=== PATIENT | male | born 1950 | race Hispanic/Latino ===

== ENCOUNTER → 2020-04-13 | Outpatient (REF) | payer MEDICARE, OTHER | LOC: M SMT 17:15 | PROVIDERS: ATTEND Urology | DX: C67.4 Malignant neoplasm of posterior wall of bladder (principal) ==

== ENCOUNTER → 2020-05-13 | Outpatient (CLI) | payer MEDICARE, OTHER ==
[~2020-05-13] MED LIST: ATOR1TAB21 PO; ECOT81TA5 PO; FLOM0.4C39 PO; LISI20TA33 PO; PROS5TAB PO
== END ==
LOC: M LABSMTC 10:35
PROVIDERS: ATTEND Anesthesiology
DX: Z01.812 Encounter for preprocedural laboratory examination (principal); Z20.822 Contact with and (suspected) exposure to COVID-19

== ENCOUNTER 2020-05-18 06:05 | Day surgery (SDC) | payer OTHER ==
[~2020-05-18] VITALS: Ht 180.3 cm; Wt 82.0 kg
[~2020-05-18 06:05] MED LIST changes: +LIDOCAINE 1% MDV 20ML VIAL SQ PRN; +LR 1,000 ML IV ONE
[2020-05-18] MEDS ORDERED: ceFAZolin SOD 2 GM in IV 1 EA IV ONE (06:30)
[2020-05-18] MEDS ORDERED: CONRAY-60 60% 50ML VIAL (Q9961) As Ordered ONE (07:39)
[2020-05-18] MEDS ORDERED: MIDAZOLAM INJ 2MG/2ML VIAL (J2250 PER 1MG) As Ordered ONE (07:47)
[2020-05-18] MEDS ORDERED: SUGAMMADEX SODIUM 500 MG/5 ML VIAL (BRIDION) As Ordered ONE (07:47)
[2020-05-18] MEDS ORDERED: dexameTHASONE 4 MG/ML 1ML VIAL (J1100 PER 1MG) As Ordered ONE (07:47)
[2020-05-18] MEDS ORDERED: ONDANSETRON 4MG/2ML VIAL As Ordered ONE (07:47)
[2020-05-18] MEDS ORDERED: fentaNYL 100 MCG/2 ML INJECTION (J3010) As Ordered ONE ×2 (07:47→08:26)
[2020-05-18] MEDS ORDERED: ROCURONIUM BROMIDE 50 MG/5 ML VIAL As Ordered ONE (07:47)
[2020-05-18] MEDS ORDERED: LIDOCAINE 2% 100MG/5ML SDV (FOR ANES.) As Ordered ONE (07:47)
[2020-05-18] MEDS ORDERED: propofoL 200 MG/20 ML VIAL As Ordered ONE (07:47)
[2020-05-18] MEDS ORDERED: ACETAMINOPHEN 1000MG 100ML IV BTL (OFIRMEV) (J0131 PER 10MG) As Ordered ONE (08:04)
[2020-05-18] MEDS ORDERED: ePHEDrine SULFATE 25 MG/5 ML(5MG/ML) SYRINGE As Ordered ONE (08:08)
--- NOTE | 2020-05-18 09:12 | REP ---
INDICATION: STENT PLACEMENT. COMPARISON: None. TECHNIQUE: Intraoperative fluoroscopic imaging. FINDINGS: Findings demonstrate satisfactory right ureteral stent placement. Total fluoroscopic time 21 seconds. IMPRESSION: Status post right ureteral stent placement. <Electronically signed by Jagdish Guzman > 05/18/20 0970
[2020-05-18] MEDS ORDERED: PERCOCET 5MG/325MG TAB PO PRN (09:45)
[2020-05-18] MEDS ORDERED: fentaNYL 100 MCG/2 ML INJECTION (J3010) IV PRN (09:45)
[2020-05-18] MEDS ORDERED: oxyCODONE 5MG TAB PO PRN (09:45)
[2020-05-18] MEDS ORDERED: LR 1,000 ML IV SCH (09:45)
[2020-05-18] MEDS ORDERED: ONDANSETRON 4MG/2ML VIAL IV PRN (09:45)
--- NOTE | 2020-05-18 09:55 | RO ---
OPERATIVE NOTE DATE OF OPERATION: 05/18/2020 PREOPERATIVE DIAGNOSIS: Bladder tumors. POSTOPERATIVE DIAGNOSIS: Bladder tumors. PROCEDURE: Cystoscopy, transurethral resection of bladder tumors (between 2 and 5 cm), right ureteroscopy, bilateral retrograde pyelogram with intraop interpretation of images, right ureteral stent placement, urethral dilation. SURGEON: Ever Grullon MD HEARING AID MECHANIC: None. ANESTHESIA: General. OPERATIVE INDICATIONS: This is a 69-year-old male who was found to have papillary bladder tumors growing lateral to the right ureteral office on office cystoscopy. He is brought to the operating room today for treatment. DESCRIPTION OF PROCEDURE: The patient was brought to the operating room and general anesthesia induced. Prophylactic antibiotics were infused. He was placed in the dorsal lithotomy position and prepped and draped in usual sterile fashion. At this point I attempted to insert a resectoscope into the urethral meatus but it would not go as the meatus was a little too narrow. I therefore dilated the meatus to 30-Palestinian using curved metal sounds. After that I advanced the resectoscope in all the way to the level of the bladder. Of note, the patient had several papillary tumors growing just lateral to the right ureteral orifice. I began resecting the tumors using a bipolar loop. I made sure to resect to the muscle layer. Once satisfied all the tumors were removed they were evacuated from the bladder. Hemostasis was obtained using coagulation current. At this point I observed the right ureteral orifice to ensure I had not caused any damage to it during resection. While observing it appeared that the patient had tumor protruding out of the right ureteral orifice. At this point I decided to investigate that. Starting first on the left side I inserted a 5-Palestinian open ureteral catheter into the left ureteral orifice. Retrograde pyelogram was performed. It was negative for hydronephrosis. It was negative for filling defects. At this point I went back to the right side and advanced a guidewire up the right collecting system. I then advanced ureteral access sheath up the right collecting system. I went up the right collecting system with flexible ureteroscope and examined the kidney thoroughly. There were no tumors seen inside any of the calyces or the renal pelvis. Retrograde pyelogram was performed and was negative hydronephrosis. It was negative for filling defects. I then withdrew the ureteroscope along with the access sheath and observed the entire ureter. No tumors were seen anywhere inside the ureter. This indicated that what was seen protruding from the right ureteral orifice was likely small tumor debris that had floated into the ureteral orifice during resection. Once again, there were no tumors seen inside the right ureter. At this point I utilized the guidewire to advance a 6-Palestinian x 22-32 cm JJ ureteral stent into the right collecting system. The wire was removed and there were adequate curls of the stent in right renal pelvis and in the bladder. At this point I observed the area of resection again and there was no bleeding. I then withdrew the resectoscope and advanced 18-Palestinian Coude catheter into the bladder. The balloon was filled with 10 mL of sterile water and catheter was connected to gravity drainage. This marked the conclusion of the procedure. The patient was taken out of the dorsal lithotomy position, awakened from anesthesia and transported to the recovery room in stable condition. ESTIMATED BLOOD LOSS: 5 mL. COMPLICATIONS: None. SPECIMEN: Bladder tumor. PLAN: The patient will follow up in urology clinic in approximately one week for catheter removal and to discuss pathology results. We will take his stent out within the next few weeks. MOE
[2020-05-18 10:55] VITALS: BP 128/84
== END 2020-05-18 10:55 | disposition home or self-care (01) ==
LOC: M SDC 06:05 → EEVIPCON 07:30 → M SDC 10:55
PROVIDERS: ATTEND Urology
DX: C67.8 Malignant neoplasm of overlapping sites of bladder (principal); I10 Essential (primary) hypertension; R21 Rash and other nonspecific skin eruption; Z87.891 Personal history of nicotine dependence; N40.0 Benign prostatic hyperplasia without lower urinary tract symptoms; G47.30 Sleep apnea, unspecified; Z79.899 Other long term (current) drug therapy
CPT/HCPCS: 52235; 52332; 74420; 88305; C1769; C1894; C2617; J0131; J0690; J1100; J2250; J2405; J3010; Q9961

== ENCOUNTER 2020-05-27 11:30 | Inpatient (IN) | payer OTHER ==
[~2020-05-27] VITALS: Ht 180.3 cm; Wt 82.6 kg
[~2020-05-27 11:30] MED LIST changes: -LIDOCAINE 1% MDV 20ML VIAL SQ PRN; -LR 1,000 ML IV ONE
[2020-05-27 16:22] VITALS: BP 98/57
--- NOTE | 2020-05-27 17:06 | HPEPDOC ---
General Date of Admission 05/27/20 Date of Service: May 27, 2020 Chief Complaint The patient is a 69-year-old male admitted with a reason for visit of Sepsis Uti. Source: Patient Exam Limitations: No limitations Timing/Duration: Day(s) Severity: Moderate History of Present Illness Patient is 69 years old male with past history of hyperlipidemia, aortic valve replacement, hypertension, bladder cancer status post TUR was transferred from [facility] with fever and chills. Patient stated that 3 days ago he had bladder tumor resection, which was done by Dr. Grullon. On the next day, patient developed generalized weakness with frequency in urination. He stated that he became unsteady in his walking Patient stated that frequency of urination was associated with suprapubic pain. Yesterday, patient developed fever and rigors, he noticed his urine became dark. He was able to urinate multiple times with small portion. Today patient came to [facility] where he was found to have low blood pressure, white blood count of 24.4 with band 18 , hemoglobin 4.6, creatinine 3.8. CT abdomen and pelvis was done, no report is available. EKG showed sinus tachycardia, with left bundle branch block. Patient denied any chest pain, palpitations. Also patient denied nausea, vomiting or diarrhea Home Medications Scheduled Ampicillin Trihydrate (Ampicillin Trihydrate) 500 Mg Capsule, 500 MG PO QID Aspirin (Ecotrin) 81 Mg Tablet.dr, 81 MG PO DAILY, (Reported) Atorvastatin Calcium (Atorvastatin Calcium) 20 Mg Tablet, 20 MG PO QHS, (Reported) Finasteride (Proscar) 5 Mg Tablet, 5 MG PO DAILY, (Reported) Lisinopril (Lisinopril) 20 Mg Tablet, 20 MG PO DAILY, (Reported) Tamsulosin HCl (Flomax) 0.4 Mg Capsule, 0.4 MG PO DAILY, (Reported) Allergies Coded Allergies: No Known Allergies (Unverified , 05/18/20) Past Medical History Medical History hyperlipidemia, aortic valve replacement, hypertension, bladder cancer status post TUR Surgical History Aortic valve replacement, bladder tumor resection Family History mother from breast cancer Social History * Smoker: former Smoker Alcohol: Denies Drugs: denies A-FIB/CHADSVASC A-FIB History Current/History of A-Fib/PAF?: No Current PO Anticoag Therapy: No Review of Systems Constitutional: Reports: Chills, Fever Eyes: Denies: Pain, Vision change ENT: Denies: Head Aches Skin: Denies: Rash, Lesions Pulmonary: Denies: Dyspnea Cardiovascular: Denies: Chest Pain Gastrointestinal: Denies: Nausea, Vomiting Genitourinary: Reports: Dysuria, Frequency Hematologic: Denies: Bruising, Bleeding Excessively Endocrine: Denies: Polydipsia Musculoskeletal: Denies: Neck Pain, Back Pain Neurological: Denies: Weakness Psych: Reports: Mood Normal Physical Examination General Exam: Positive: Alert, Cooperative Eye Exam: Positive: PERRLA ENT Exam: Positive: Atraumatic Neck Exam: Positive: Supple; Negative: JVD Chest Exam: Positive: Clear to auscultation Heart Exam: Positive: Tachycardic Telemetry: Positive: Sinus Abdomen Exam: Positive: Normal bowel sounds, Tenderness (mild suprapubic) Extremity Exam: Negative: Clubbing, Cyanosis Skin Exam: Positive: Nl turgor and temperature Neuro Exam: Positive: Strength at 5/5 X4 ext Psych Exam: Positive: Mental status NL Vital Signs [id number] Assessment/Plan Patient is 69 years old male with past history of hyperlipidemia, aortic valve replacement, hypertension, bladder cancer status post TUR was transferred from [facility] with fever and chills. Patient stated that 3 days ago he had bladder tumor resection, which was done by Dr. Grullon. On the next day, patient developed generalized weakness with frequency in urination. He stated that he became unsteady in his walking Patient stated that frequency of urination was associated with suprapubic pain. Yesterday, patient developed fever and rigors, he noticed his urine became dark. He was able to urinate multiple times with small portion. Today patient came to [facility] where he was found to have low blood pressure, white blood count of 24.4 with band 18 , hemoglobin 4.6, creatinine 3.8. CT abdomen and pelvis was done, no report is available. EKG showed sinus tachycardia, with left bundle branch block. Patient denied any chest pain, palpitations. Also patient denied nausea, vomiting or diarrhea Problems (1) Sepsis Status: Acute Problem Text: Secondary to surgical intervention, status post TURB due to tumor Patient developed leukocytosis, fever and tachycardia associated with low blood pressure of 90/[address] Grullon, he recommended to continue antibiotics Blood culture, urine culture Continue Holliday catheter Ceftriaxone IV IV fluid (2) Hyperlipidemia Status: Chronic Problem Text: Continue statin (3) Hypertension Status: Chronic Problem Text: Hold antihypertensive medication for now due to hypotension secondary to sepsis (4) Abnormal EKG Problem Text: Patient has sinus tachycardia with left bundle branch block. No previous EKG to compare. Patient has multiple risk factors: Age, hyperlipidemia, hypertension, smoking history Patient denied any chest pain or palpitations I will check troponin Telemetry (5) VENUS (acute kidney injury) Status: Acute Problem Text: Postrenal secondary to urinary obstruction due to recent TURB Creatinine significantly elevated to 3.[address], no hydronephrosis Continue to monitor IV fluid Plan / VTE VTE Prophylaxis Ordered?: Yes TONIA TRINIDAD DO May 27, 2020 17:06
[2020-05-27] MEDS: NS 1,000 ML IV SCH (17:40)
[2020-05-27] MEDS ORDERED: NS 1,000 ML IV ONE (17:45)
[2020-05-27 18:50] LABS: HEMATOCRIT 34.3 % (42.0-52.0); HEMOGLOBIN 11.4 g/dl (13.5-17.5); MEAN CORPUSCULAR HEMOGLOBIN 29.8 pg (27.0-33.0); MEAN CORPUSCULAR HGB CONC 33.2 g/dl (32.0-36.5); MEAN CORPUSCULAR VOLUME 89.8 fl (80.0-96.0); PLATELET COUNT, AUTOMATED 139 10^3/uL (150-450); RED BLOOD COUNT 3.82 10^6/uL (4.30-6.10); WHITE BLOOD COUNT 17.7 10^3/uL (4.0-10.0)
[2020-05-27 18:58] LABS: CREATININE FOR GFR 3.67 MG/DL (0.70-1.30); GLOMERULAR FILTRATION RATE 17.5 (>42); POTASSIUM SERUM 3.7 MEQ/L (3.5-5.1); TROPONIN I 0.22 NG/ML (< 0.10)
[2020-05-27 19:36] LABS: LYMPHOCYTES 1 % (16-44); MONOCYTES 1 % (0-5); NEUTROPHILS 73 % (28-66)
[2020-05-27 19:37] LABS: ANISOCYTOSIS 1+; OVALOCYTES 1+; PLATELET ESTIMATE NORMAL (NORMAL); POLYCHROMASIA 1+
[2020-05-27 21:00] VITALS: BP 105/68
[2020-05-27] MEDS ORDERED: SODIUM CHLORIDE 0.9% 1000ML IV ONE (21:25)
[2020-05-27] MEDS: ACETAMINOPHEN TAB 650MG DOSE (2X325MG) PO PRN (21:29)
[2020-05-27 22:00] VITALS: BP 120/71
[2020-05-28] MEDS: ACETAMINOPHEN TAB 650MG DOSE (2X325MG) PO PRN ×2 (05:16→14:14)
[2020-05-28 06:00] VITALS: BP 127/77
--- NOTE | 2020-05-28 06:08 | ECGEPIP ---
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
[2020-05-28 07:46] LABS: HEMATOCRIT 32.8 % (42.0-52.0); HEMOGLOBIN 10.8 g/dl (13.5-17.5); MEAN CORPUSCULAR HEMOGLOBIN 29.8 pg (27.0-33.0); MEAN CORPUSCULAR HGB CONC 32.9 g/dl (32.0-36.5); MEAN CORPUSCULAR VOLUME 90.4 fl (80.0-96.0); PLATELET COUNT, AUTOMATED 128 10^3/uL (150-450); RED BLOOD COUNT 3.63 10^6/uL (4.30-6.10); WHITE BLOOD COUNT 13.9 10^3/uL (4.0-10.0)
[2020-05-28 08:08] LABS: ALBUMIN 2.2 GM/DL (3.2-5.2); BILIRUBIN,TOTAL 0.2 MG/DL (0.2-1.0); CREATININE FOR GFR 3.21 MG/DL (0.70-1.30); GLOMERULAR FILTRATION RATE 20.5 (>42); MAGNESIUM LEVEL 2.1 MG/DL (1.8-2.4); POTASSIUM SERUM 3.7 MEQ/L (3.5-5.1); TOTAL PROTEIN 4.8 GM/DL (6.4-8.2)
[2020-05-28] MEDS: ENOXAPARIN 40MG/0.4ML SYRINGE (J1650 PER 10MG) SC SCH (08:17)
[2020-05-28] MEDS: TAMSULOSIN 0.4 MG CAP PO SCH (08:17)
[2020-05-28] MEDS: ASPIRIN 81MG ENTERIC TABLET PO SCH (08:17)
[2020-05-28] MEDS: NS 1,000 ML IV SCH ×2 (08:17→14:00)
[2020-05-28] MEDS: FINASTERIDE 5 MG TAB PO SCH (08:17)
[2020-05-28 08:27] VITALS: BP 102/68
[2020-05-28] MEDS ORDERED: NS 1,000 ML IV ONE ×2 (08:30→12:05)
[2020-05-28] MEDS ORDERED: cefTRIAXone SOD 1 GM in D5W MINI-BAG PLUS 50 ML IV SCH (10:00)
--- NOTE | 2020-05-28 10:08 | ECGEPIP ---
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
--- NOTE | 2020-05-28 11:08 | IPNPDOC ---
Text Note Date of Service The patient was seen on 05/28/20. NOTE Subjective: Patient developed chills and fever of 104 Fahrenheit overnight. In the morning he stated that he feels better, no chills, afebrile. Patient denied any chest pain or palpitations. Also patient complains of multiple episodes of diarrhea overnight. Objective: GENERAL APPEARANCE: NAD HEENT: no scleral icterus, no JVD, EOMI CARDIOVASCULAR: S1S2 LUNGS: Diminished lung sounds bilaterally ABDOMEN: soft & not tender w palpitation, no flank tenderness, mild suprapubic t enderness MUSCULOSKELETAL: no cyanosis, no swelling INTEGUMENT: no generalized pallor NEUROLOGICAL: cranial nerve function from 2-12 intact intact, follows commands, speech not dysarthric Assessment/Plan Patient is 69 years old male with past history of hyperlipidemia, aortic valve replacement, hypertension, bladder cancer status post TUR was transferred from [facility] with fever and chills. Patient stated that 3 days ago he had bladder tumor resection, which was done by Dr. Grullon. On the next day, patient developed generalized weakness with frequency in urination. He stated that he became unsteady in his walking Patient stated that frequency of urination was associated with suprapubic pain. Yesterday, patient developed fever and rigors, he noticed his urine became dark. He was able to urinate multiple times with small portion. Today patient came to [facility] where he was found to have low blood pressure, white blood count of 24.4 with band 18 , hemoglobin 4.6, creatinine 3.8. CT abdomen and pelvis was done, no report is available. EKG showed sinus tachycardia, with left bundle branch block. Patient denied any chest pain, palpitations. Also patient denied nausea, vomiting or diarrhea Problems (1) Sepsis Secondary to surgical intervention, status post TURB due to tumor Patient developed leukocytosis, fever and tachycardia associated with low blood pressure of 90/60 on admission I talked to Dr. Grullon, he recommended to continue antibiotics Blood culture, urine culture pending Procalcitonin 63.98 Continue Holliday catheter Ceftriaxone IV IV fluid Our radiology team reviewed CT abdomen and pelvis from [facility]: No renal or ureteral calculi. Right ureteral stent with extensive perinephric and periureteral stranding on the right with actual fluid in the right perinephric space. I will proceed with kidney ultrasound to rule out right kidney abscess Leukocytosis improved today down from 17.7 to 13.9. Acute pyelonephritis Continue treatment with ceftriaxone IV and IV fluid Holliday in place Hyperlipidemia Continue statin Hypertension Hold antihypertensive medication for now due to hypotension secondary to sepsis Abnormal EKG Problem Text: Patient has sinus tachycardia with left bundle branch block. No previous EKG to compare. Patient has multiple risk factors: Age, hyperlipidemia, hypertension, smoking history Patient denied any chest pain or palpitations I will check troponin Telemetry VENUS (acute kidney injury) Postrenal secondary to urinary obstruction due to recent TURB Creatinine significantly elevated to 3.8 on admission Today, slightly improved 2.[address], no hydronephrosis Continue to monitor IV fluid I talked to urologist Dr. Botello he will see the patient today Elevated troponin Most likely demand ischemia Patient denies any chest pain I discussed the case with Dr. Thacker, he recommended to continue aspirin, no anticoagulation due to recent TURB repeated EKG showed incomplete left bundle branch block, normal sinus rhythm. Continue to monitor troponin Diarrhea Will check stool for C. difficile VS,Esther, I+O VS, [place], I+O Laboratory Tests 05/27/20 16:48 05/27/20 18:01 05/28/20 06:20 Vital Signs Date Time Temp Pulse Resp B/P (MAP) Pulse Ox O2 Delivery O2 Flow Rate FiO2 05/28/20 08:27 102/68 05/28/20 06:37 99.4 05/28/20 06:00 74 18 98 Nasal Cannula 2.0 I&O- Last 24 Hours up to 6 AM 05/28/20 06:00 Intake Total 1300 ml Output Total 550 ml Balance 750 ml TONIA TRINIDAD DO May 28, 2020 11:07
--- NOTE | 2020-05-28 11:35 | REP ---
INDICATION: right kidney abscess COMPARISON: None TECHNIQUE: Real time aguilar scale ultrasound examination using curved array transducer. FINDINGS: Bilateral kidneys are normal in reniform shape with increased central sinus fat suggesting age-related changes. No hydronephrosis, nephrolithiasis, cystic or renal mass lesion. No perinephric fluid collection or abscess identified. Right kidney measures 11.0 x 6.9 x 7.1 cm. Left kidney measures 11.0 x 4.7 x 5.8 cm. Holliday catheter in collapsed bladder. IMPRESSION: 1. Age-related changes. No evidence for acute renal pathology. Specifically, no perinephric fluid or renal abscess identified. <Electronically signed by Jagdish Guzman > 05/28/20 [id number]
--- NOTE | 2020-05-28 12:56 | SMCUROLCON ---
Urology Consultation General Date of Consultation 05/28/20 Reason For Consultation This patient is seen for Sepsis Uti. History of Present Illness The patient is a [69]-year-old [man] with a past medical history for bladder tumor who was admitted for urosepsis. He had a TURBT earlier this week with placement of a right ureteral stent. His catheter was removed the next day and he reports he was voiding but not well. He became ill Thday evening and went to his local ER and subsequently transferred here. A wright cath was placed in the interim. He is presently feeling better but had some high fever yesterday despite initiation of antibiotics. Medications Current Medications Current Medications Medications (Trade) Dose Ordered Sig/Ivana Route PRN Reason Start Time Stop Time Status Last Admin Dose Admin Acetaminophen (Tylenol Tab) 650 mg Q4H PRN PO PAIN OR FEVER 05/27/20 16:50 05/28/20 05:16 Aspirin (Ecotrin) 81 mg DAILY PO 05/28/20 09:00 05/28/20 08:17 Atorvastatin Calcium (Lipitor) 20 mg QHS PO 05/28/20 21:00 Ceftriaxone Sodium 1 gm/ Dextrose 50 ml @ 100 mls/hr Q24H IV 05/28/20 10:00 05/28/20 12:05 DC 05/28/20 09:46 Ceftriaxone Sodium 2 gm/ Dextrose 50 ml @ 100 mls/hr Q24H IV 05/29/20 10:00 Enoxaparin Sodium (Lovenox) 40 mg DAILY SC 05/28/20 09:00 05/28/20 08:17 Finasteride (Proscar) 5 mg DAILY PO 05/28/20 09:00 05/28/20 08:17 Home Med (Med Rec Complete!) ASDIRECTED XX 05/27/20 17:45 05/27/20 17:48 DC Lisinopril (Prinivil) 20 mg DAILY PO 05/28/20 09:00 Sodium Chloride 1,000 ml @ 100 mls/hr Q10H IV 05/27/20 18:00 05/28/20 08:17 Tamsulosin HCl (Flomax) 0.4 mg DAILY PO 05/28/20 09:00 05/28/20 08:17 Allergies Allergies: Coded Allergies: No Known Allergies (Unverified , 05/18/20) Physical Examination General Exam: Mild Distress Abdomen Exam: Soft, Other (no focal tenderness and bladder is decompressed) Male Exam He has a Wright in place draining largely clear urine. Extremity Exam: Other (No palpable cords or calf tenderness) Vital Signs/I&O Vital Signs Date Time Temp Pulse Resp B/P (MAP) Pulse Ox O2 Delivery O2 Flow Rate FiO2 05/28/20 08:27 102/68 05/28/20 06:37 99.4 05/28/20 06:00 74 18 98 Nasal Cannula 2.0 I&O- Last 24 Hours up to 6 AM 05/28/20 06:00 Intake Total 1300 ml Output Total 550 ml Balance 750 ml Laboratory Data 24H Labs Laboratory Tests 2 05/27/20 16:48: Anion Gap 7L, Glomerular Filtration Rate 17.5L, Calcium Level 7.0L, Troponin I 0.22H 05/27/20 18:01: Neutrophils (%) (Auto) , Nucleated Red Blood Cells % (auto) 0.0, Neutrophils 73H, Band Neutrophils 25H, Lymphocytes (Manual) 1L, Monocytes (Manual) 1, Polychromasia 1+, Anisocytosis 1+, Ovalocytes 1+, Platelet Estimate NORMAL, Lactic Acid Level 1.5 05/27/20 20:56: Urine Color YELLOW, Urine Appearance HAZY, Urine pH 5.0, Urine Specific [place] 1.015, Urine Protein 2+H, Urine Glucose (UA) NEGATIVE, Urine Ketones NEGATIVE, Urine Blood 3+H, Urine Nitrite NEGATIVE, Urine Bilirubin NEGATIVE, Urine Urobilinogen 0.2, Urine Leukocyte Esterase 2+H, Urine WBC (Auto) 35H, Urine RBC (Auto) 120H, Urine Hyaline Casts (Auto) 0, Urine Bacteria (Auto) NEGATIVE, Urine Squamous Epithelial Cells 0, Urine Mucus (Auto) SMALL, Urine Yeast-Like Cells (Auto) SMALLH, Urine Sperm (Auto) 05/27/20 22:07: Troponin I 0.24H 05/28/20 06:20: Nucleated Red Blood Cells % (auto) 0.0, Anion Gap 8, Glomerular Filtration Rate 20.5L, Calcium Level 7.0L, Magnesium Level 2.1, Total Bilirubin 0.2, Aspartate Amino Transf (AST/SGOT) 29, Alanine Aminotransferase (ALT/SGPT) 15, Alkaline Phosphatase 50, Total Protein 4.8L, Albumin 2.2L, Albumin/Globulin Ratio 0.8, Procalcitonin 63.98 05/28/20 08:09: Troponin I 0.46#H CBC/BMP Laboratory Tests 05/27/20 16:48 05/27/20 18:01 05/28/20 06:20 Microbiology Microbiology 05/27/20 Urine Culture, Received Pending 05/27/20 Blood Culture, Received Pending 05/27/20 Blood Culture, Received Pending Assessment Probable urosepsis with right sided pyelonephritis. There are no fluid collections or areas requiring drainage. The stranding seen on CT is consistent with inflammation and the stent is in good position and appears to be functioning appropriately. Plan He will need to continue IV fluids and antibiotics pending culture results. He will also need to keep catheter drainage for now. I will follow with you. COBY SORTO MD May 28, 2020 12:56
[2020-05-28 14:00] VITALS: BP 126/74
[2020-05-28 18:01] LABS: CLOSTRIDIUM DIFFICILE PCR NEGATIVE (NEGATIVE)
[2020-05-28 22:00] VITALS: BP 104/70
[2020-05-28] MEDS: ATORVASTATIN 20 MG TAB PO SCH (22:08)
[2020-05-29] MEDS: NS 1,000 ML IV SCH ×3 (00:49→17:52)
[2020-05-29 06:00] VITALS: BP 108/65
[2020-05-29 06:51] LABS: HEMATOCRIT 32.1 % (42.0-52.0); HEMOGLOBIN 10.5 g/dl (13.5-17.5); MEAN CORPUSCULAR HEMOGLOBIN 29.5 pg (27.0-33.0); MEAN CORPUSCULAR HGB CONC 32.7 g/dl (32.0-36.5); MEAN CORPUSCULAR VOLUME 90.2 fl (80.0-96.0); PLATELET COUNT, AUTOMATED 142 10^3/uL (150-450); RED BLOOD COUNT 3.56 10^6/uL (4.30-6.10); WHITE BLOOD COUNT 9.8 10^3/uL (4.0-10.0)
[2020-05-29 07:02] LABS: BILIRUBIN,TOTAL 0.2 MG/DL (0.2-1.0); CALCIUM LEVEL 7.1 MG/DL (8.8-10.2); CREATININE FOR GFR 2.55 MG/DL (0.70-1.30); GLOMERULAR FILTRATION RATE 26.7 (>42); MAGNESIUM LEVEL 2.2 MG/DL (1.8-2.4); POTASSIUM SERUM 3.7 MEQ/L (3.5-5.1); TOTAL PROTEIN 4.9 GM/DL (6.4-8.2)
[2020-05-29 07:10] LABS: EOSINOPHILS 2 % (0-3); LYMPHOCYTES 5 % (16-44); MONOCYTES 4 % (0-5); NEUTROPHILS 83 % (28-66); PLATELET CLUMPS SMALL AMT; PLATELET ESTIMATE NORMAL (NORMAL); POIKILOCYTOSIS 1+
--- NOTE | 2020-05-29 10:23 | IPNPDOC ---
Subjective Review oF Systems Chief Complaint The patient is a 69-year-old male admitted with a reason for visit of Sepsis Uti. Events since Last Encounter He feels better. He had elevated temp to 101.6 yesterday. He has no pain at present. His blood cultures are no growth thus far. Objective Physical Examination Heart Exam: Positive: Tachycardic Vital Signs/I&O Vital Signs Date Time Temp Pulse Resp B/P (MAP) Pulse Ox O2 Delivery O2 Flow Rate FiO2 05/29/20 06:00 98.6 69 18 108/65 (79) 94 Room Air 05/28/20 06:00 2.0 I&O- Last 24 Hours up to 6 AM 05/29/20 05:59 Intake Total 4320 ml Output Total 2050 ml Balance 2270 ml Laboratory Data Labs 24H Laboratory Tests 2 05/28/20 16:48: Clostridium difficile [id number] PRESUMPTIVE NEGATIVE, Clostridium difficile Toxin (PCR) NEGATIVE 05/29/20 06:21: Neutrophils (%) (Auto) , Nucleated Red Blood Cells % (auto) 0.0, Neutrophils 83H, Band Neutrophils 6, Lymphocytes (Manual) 5L, Monocytes (Manual) 4, Eosinophils (Manual) 2, Poikilocytosis 1+, Platelet Estimate NORMAL, Clumped Platelets SMALL AMT, Anion Gap 9, Glomerular Filtration Rate 26.7L, Calcium Level 7.1L, Magnesium Level 2.2, Total Bilirubin 0.2, Aspartate Amino Transf (AST/SGOT) 45H, Alanine Aminotransferase (ALT/SGPT) 21, Alkaline Phosphatase 67, Total Protein 4.9L, Albumin 2.0L, Albumin/Globulin Ratio 0.7 05/29/20 08:13: Troponin I 1.07#H CBC/BMP Laboratory Tests 05/29/20 06:21 Microbiology Microbiology 05/27/20 Urine Culture, Received Pending 05/27/20 Blood Culture - Preliminary, Resulted No growth after 24 hours . All specim... 05/27/20 Blood Culture - Preliminary, Resulted No growth after 24 hours . All specim... Assessment/Plan Date Seen The patient was seen on 05/29/20. Plan/VTE VTE Prophylaxis Ordered?: No VTE Exclusion Mechanical Proph: Low Risk for VTE Plan I await final cultures to decide on antibiotic regimen for discharge. He will likely need to go home with wright. Physical Examination ECOG PERFORMANCE STATUS: 1 Abdomen Exam: Positive: Normal bowel sounds, Soft, Other (no appreciable tenderness) Extremity Exam: Positive: Other (No palpable cord) COBY SORTO MD May 29, 2020 10:23
[2020-05-29] MEDS: cefTRIAXone SOD 2 GM in D5W MINI-BAG PLUS 50 ML IV SCH (10:54)
[2020-05-29] MEDS: ENOXAPARIN 40MG/0.4ML SYRINGE (J1650 PER 10MG) SC SCH (10:54)
[2020-05-29] MEDS: TAMSULOSIN 0.4 MG CAP PO SCH (10:57)
[2020-05-29] MEDS: ASPIRIN 81MG ENTERIC TABLET PO SCH (10:57)
[2020-05-29] MEDS: FINASTERIDE 5 MG TAB PO SCH (10:58)
--- NOTE | 2020-05-29 13:06 | ECGEPIP ---
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
[2020-05-29 14:00] VITALS: BP 126/77
--- NOTE | 2020-05-29 14:40 | IPNPDOC ---
Text Note Date of Service The patient was seen on 05/29/20. NOTE Subjective: No any acute events overnight. Patient denies fever, chills, chest pain, palpitations nausea, vomiting, diarrhea Objective: GENERAL APPEARANCE: NAD HEENT: no scleral icterus, no JVD, EOMI CARDIOVASCULAR: S1S2 LUNGS: Diminished lung sounds bilaterally ABDOMEN: soft & not tender w palpitation, no flank tenderness, mild suprapubic tenderness MUSCULOSKELETAL: no cyanosis, no swelling INTEGUMENT: no generalized pallor NEUROLOGICAL: cranial nerve function from 2-12 intact intact, follows commands, speech not dysarthric Assessment/Plan Patient is 69 years old male with past history of hyperlipidemia, aortic valve replacement, hypertension, bladder cancer status post TUR was transferred from [facility] with fever and chills. Patient stated that 3 days ago he had bladder tumor resection, which was done by Dr. Grullon. On the next day, patient developed generalized weakness with frequency in urination. He stated that he became unsteady in his walking Patient stated that frequency of urination was associated with suprapubic pain. Yesterday, patient developed fever and rigors, he noticed his urine became dark. He was able to urinate multiple times with small portion. Today patient came to [facility] where he was found to have low blood pressure, white blood count of 24.4 with band 18 , hemoglobin 4.6, creatinine 3.8. CT abdomen and pelvis was done, no report is available. EKG showed sinus tachycardia, with left bundle branch block. Patient denied any chest pain, palpitations. Also patient denied nausea, vomiting or diarrhea Problems (1) Sepsis resolved Secondary to surgical intervention, status post TURB due to tumor Patient developed leukocytosis, fever and tachycardia associated with low blood pressure of 90/60 Procalcitonin 63.98 on the admission Our radiology team reviewed CT abdomen and pelvis from [facility]: No re nal or ureteral calculi. Right ureteral stent with extensive perinephric and periureteral stranding on the right with actual fluid in the right perinephric space. kidney ultrasound on 05/29/20 negative for right kidney abscess Leukocytosis improved on 05/29/20 down from 17.7 to 9.8 One set of blood culture positive for gram-positive rods. There is concern for contamination. I will repeat blood culture Await urine culture Acute pyelonephritis Continue treatment with ceftriaxone IV and IV fluid Holliday in place Improved today. Fever resolved, leukocytosis resolved Hyperlipidemia Continue statin Hypertension Blood pressures under control Abnormal EKG Patient has sinus tachycardia with left bundle branch block. No previous EKG to compare. Patient has multiple risk factors: Age, hyperlipidemia, hypertension, smoking history Patient denied any chest pain or palpitations during this hospital stay On 05/29/20 troponin elevated to 1.07. EKG showed sinus bradycardia with incomplete left bundle branch block Echo report pending. Continue to monitor troponin. Appreciate/agree with plumbing engineer consult Telemetry VENUS (acute kidney injury) Postrenal secondary to urinary obstruction due to recent TURB Creatinine significantly elevated to 3.8 on admission. Creatinine 2.5 Improved today Elevated troponin Most likely demand ischemia Patient denies any chest pain See above Diarrhea Resolved C. difficile negative VS,Fishbone, I+O VS, Fishbone, I+O Laboratory Tests 05/29/20 06:21 Vital Signs Date Time Temp Pulse Resp B/P (MAP) Pulse Ox O2 Delivery O2 Flow Rate FiO2 05/29/20 14:00 97.4 58 20 126/77 (93) 97 Room Air 05/28/20 06:00 2.0 I&O- Last 24 Hours up to 6 AM 05/29/20 06:00 Intake Total 4670 ml Output Total 2525 ml Balance 2145 ml TONIA TRINIDAD DO May 29, 2020 14:40
[2020-05-29] MEDS: ATORVASTATIN 20 MG TAB PO SCH (20:50)
[2020-05-29 22:00] VITALS: BP 132/62
[2020-05-30] MEDS: NS 1,000 ML IV SCH ×3 (01:55→18:33)
[2020-05-30 05:48] LABS: BASO % 0.5 % (0.0-1.0); EOS # 0.4 10^3/uL (0.0-0.5); EOS % 4.2 % (0.0-3.0); HEMATOCRIT 31.3 % (42.0-52.0); HEMOGLOBIN 10.2 g/dl (13.5-17.5); LYMPH # 0.7 10^3/uL (1.5-5.0); LYMPH % 8.1 % (24.0-44.0); MEAN CORPUSCULAR HEMOGLOBIN 29.4 pg (27.0-33.0); MEAN CORPUSCULAR HGB CONC 32.6 g/dl (32.0-36.5); MEAN CORPUSCULAR VOLUME 90.2 fl (80.0-96.0); MONO # 0.6 10^3/uL (0.0-0.8); MONO % 7.1 % (2.0-8.0); NEUTROPHILS # 6.9 10^3/uL (1.5-8.5); NEUTROPHILS % 79.4 % (36.0-66.0); PLATELET COUNT, AUTOMATED 149 10^3/uL (150-450); RED BLOOD COUNT 3.47 10^6/uL (4.30-6.10); WHITE BLOOD COUNT 8.7 10^3/uL (4.0-10.0)
[2020-05-30 06:00] VITALS: BP 119/73
[2020-05-30 06:14] LABS: BILIRUBIN,TOTAL 0.3 MG/DL (0.2-1.0); CREATININE FOR GFR 2.28 MG/DL (0.70-1.30); GLOMERULAR FILTRATION RATE 30.4 (>42); MAGNESIUM LEVEL 2.1 MG/DL (1.8-2.4); POTASSIUM SERUM 3.6 MEQ/L (3.5-5.1); TROPONIN I 0.63 NG/ML (< 0.10)
[2020-05-30] MEDS: ASPIRIN 81MG ENTERIC TABLET PO SCH (08:31)
[2020-05-30] MEDS: FINASTERIDE 5 MG TAB PO SCH (08:31)
[2020-05-30] MEDS: ENOXAPARIN 40MG/0.4ML SYRINGE (J1650 PER 10MG) SC SCH (08:31)
[2020-05-30] MEDS: TAMSULOSIN 0.4 MG CAP PO SCH (08:31)
--- NOTE | 2020-05-30 10:14 | IPN ---
PROGRESS NOTE DATE: 05/30/2020 SUBJECTIVE: Mr. Michelle is feeling well today. He said he slept well, he does not have any chest pain, he does not feel short of breath, and he does not have any pain in his groin either. There have not been any events on telemetry. During the night he is bradycardic but no long pauses. There were no ventricular arrhythmias. OBJECTIVE: On vital signs, blood pressure 119/73, heart rate has been in the 70s and 80s. He has been afebrile. Weight was recorded as 82.6 kg, which is slightly up from three days ago. He is alert and oriented and appropriate. His jugular venous pressure (JVP) is not high. Lungs are clear with good air movement bilaterally. Heart exam reveals regular rhythm. Today, there is a little more apparent murmur at the apex probably 3/6 intensity, blowing in nature. His aortic murmur is relatively faint. Abdomen is soft, nontender. He has a Holliday catheter in place, and his extremities are free of edema. LABORATORY: Sodium 144, potassium 3.6, BUN 34, creatinine 2.3 for GFR of 30, and glucose 100. Troponin is down to 2.63. CBC reveals WBC count 8.7, hemoglobin 10.2, hematocrit 31.3 and platelet count 149. ASSESSMENT AND PLAN: Mr. Michelle is a 69-year-old man who has a history of aortic valve replacement with bioprosthesis in 2011 who presented to our facility with urosepsis a few days after transurethral resection of bladder tumor (TURBT). In the process, troponin was drawn and it was found to be elevated and peaked slightly over 1. Echocardiogram did not reveal any wall motion abnormality and there was no appreciable evolution on EKG even though the initial tracing revealed incomplete left bundle branch block and nonspecific repolarization abnormalities in precordial leads. He never had any chest discomfort. An echocardiogram revealed no wall motion abnormality but approximately moderate mitral insufficiency due to posterior mitral leaflet prolapse. Left ventricle was mildly dilated and the function of the aortic bioprosthesis was normal. At this point, I believe we can continue current medical management. It is most likely type 2 myocardial infarction insetting of urosepsis. Nevertheless, we still were not able to obtain records from [facility] [place] [facility] where he had recent evaluation. 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 Otherwise, he is on appropriate medications that include aspirin, atorvastatin. He was on Stephan inhibitor but due to acute renal failure it is out of question and there is no role for beta nuha because he tends to run bradycardic. As far as the other problem is concerned, his acute renal injury, he is slowly recovering; hopefully there will be full recovery of renal function. The trend so far has been favorable. Please call me if any further assistance is desired.
--- NOTE | 2020-05-30 10:14 | CR ---
CARDIOLOGY CONSULTATION DATE: 05/27/2020 REFERRING PHYSICIAN: Dr. Adam. REASON FOR CONSULTATION: Elevated troponin in patient with urosepsis. HISTORY OF PRESENT ILLNESS: Mr. Michelle is previously unknown to me. He is a 69-year-old man who was admitted with urosepsis as a transfer from [facility] where he presented with shaking chills, leukocytosis and borderline low blood pressure. He recently underwent resection of bladder cancer by Dr. Grullon two days prior to admission, so this is probably not a completely unexpected complication. After transfer to our facility, he was mildly hypotensive, but with hydration and holding his antihypertensive medication, his blood pressure gradually improved. EKG on May 27, 2020 revealed sinus rhythm with incomplete left bundle branch block and T-wave abnormalities in precordial leads, especially leads V4 and V5. That prompted drawing troponin that was mildly elevated and the serial followup continued to reveal gradually increasing levels. So far, the maximum this morning was when troponin was 1.1. At no point the patient had any chest discomfort or any difficulty breathing. Serial EKGs all reveal incomplete left bundle branch block, but the initial ST-T abnormalities presented on May 27, 2020 have resolved. Patient tells me that he has a history of aortic valve replacement in 2011 in [place], [place]. Apparently, he had a heart catheterization. He does not know about the results, but he recalls that aortic valve replacement was the only thing done. He did not have any bypass surgery. More recently, approximately 3-4 months ago, he believes in January 2020, he was evaluated by cardiology group in [facility]. To the best of his understanding, they discovered some form of abnormality that they asked him to have further evaluation, but he did not have much confidence in their advice and scheduled appointment in cardiology in [place], [place], that has not occurred yet, though. He is working in spite of his age of 69 years. 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 He denies any chest discomfort or shortness of breath. PAST MEDICAL HISTORY: 1. History of bladder cancer, status post transurethral resection of the bladder (TURB). 2. Hyperlipidemia. 3. Hypertension. 4. History of aortic valve replacement with bioprosthesis in 2011. SURGICAL HISTORY: 1. Aortic valve replacement (AVR). 2. Transurethral resection of the bladder (TURB). FAMILY HISTORY: Negative for coronary artery disease. His mother of breast cancer. He is not sure what was the cause of of his father, but he does not recall any relatives with heart attacks or strokes. SOCIAL HISTORY: Patient is . He quit smoking several years ago. No significant alcohol use. No history of drug use. ALLERGIES: No allergies. OUTPATIENT MEDICATIONS: - aspirin 81 mg daily - atorvastatin 20 mg daily - Proscar 5 mg daily - lisinopril 20 mg daily - Flomax 0.4 mg daily REVIEW OF SYSTEMS: Besides fever, chills, he did not have any symptoms of a cardiovascular nature prior to admission. He specifically denies any palpitations, dizziness, chest pain, shortness of breath, near syncope, syncope or peripheral edema. The rest of the review of systems is as per history of present illness (HPI) or otherwise negative. PHYSICAL EXAMINATION: Mr. Michelle is a 69-year-old man who appears younger than his calendar age. He is laying in the hospital bed in no distress, comfortable. He provides good history. VITAL SIGNS: Blood pressure 126/77, heart rate has been in the 50s to 70s sinus rhythm. His maximum temperature (T-max) yesterday was 100.5. Today he has been afebrile. Saturation 97% on room air. FLUID BALANCE: Today has been about 400 positive. It was positive a little over 2 liters yesterday. I do not see any documentation of weight for two days. The admission weight was 81.8 kg. GENERAL: He is alert, appropriate. His jugular venous pressure (JVP) is not elevated. LUNGS: Clear to auscultation with good air movement. HEART EXAM: Reveals regular rhythm. There is a faint murmur at the apex, not more than 2/6 intensity, holosystolic in nature. I do not appreciate gallop. ABDOMEN: Soft. No obvious tenderness or rebound tenderness. Holliday catheter is in place. EXTREMITIES: Free of edema. Peripheral pulses are of good quality. NEUROLOGIC: He is intact. He does have very prominent median sternotomy scar. LABORATORY DATA: As of today: Sodium 143, potassium 3.7, BUN 44, creatinine 2.6, glucose 94. Creatinine has actually improved since yesterday, 3.2. Normal liver function tests. Troponin I started at 1648 on May 27, 2020 as 0.22 and so far, the high this morning was 1.07 and the trend was still up. Albumin this morning 2.0. Procalcitonin on May 28, 2020 was 64. CBC as of this morning: Hemoglobin 10.5, hematocrit 32.1, platelet count 142,000. Differential: 83% neutrophils. IMAGING DATA: Renal ultrasound did not reveal any evidence for hydronephrosis. No obvious signs of pyelonephritis, either. EKG is as per history of present illness. He had an echocardiogram performed yesterday that I interpreted. It revealed mildly dilated left ventricle with mild ventricular hypertrophy and no segmental wall motion abnormalities. There was mitral valve prolapse resulting in approximately moderate mitral insufficiency. There is normal function of bioprosthesis in aortic position. Tricuspid valve also exhibits approximately moderate insufficiency and there is approximately moderate pulmonary hypertension. Central venous pressure appeared normal. ASSESSMENT AND PLAN: Mr. Michelle is a 69-year-old man who has a history of aortic valve replacement in 2011 in [place], [place]. He does not have any history of coronary artery disease that we know of. He currently presented with urosepsis a few days after TURB. He is found to have incomplete left bundle branch block with nonspecific repolarization abnormalities on EKG and mild troponin elevation that so far reached as high as 1.0. I suspect that this represents type 2 myocardial infarction. He has no angina, no wall motion abnormality on EKG. Most likely related to urosepsis. I would continue purely supportive management. Obviously, his blood pressure medications were held. He is continued on aspirin and Lipitor and deep venous thrombosis (DVT) prophylactic dose of Lovenox. I agree with this current approach. I think the full anticoagulation would carry significant bleeding risk due to recent resection of bladder tumor. Will continue monitoring his troponin. After he recovers from this illness, he will need additional cardiac evaluation. I requested records from [place] and from [facility] to see whether he did or did not have any coronary artery disease (CAD) during angiogram approximately eight years ago and what abnormalities were found in [place]. He certainly has at least moderate mitral insufficiency, but I do not believe that the severity of the disease is sufficient in order to warrant evaluation for valve surgery. I would recommend to continue patient on telemetry at least until we see trend down in his troponin. So far, there were no ventricular arrhythmias. There were a few supraventricular ectopic beats including brief runs of supraventricular tachycardia (SVT).
[2020-05-30] MEDS: cefTRIAXone SOD 2 GM in D5W MINI-BAG PLUS 50 ML IV SCH (10:23)
--- NOTE | 2020-05-30 13:15 | IPNPDOC ---
Subjective Review oF Systems Chief Complaint The patient is a 69-year-old male admitted with a reason for visit of Sepsis Uti. Events since Last Encounter No acute events o/n. Patient denies pain. No f/c/ns. Objective Physical Examination General Exam: Alert, Cooperative, No Acute Distress ABDOMEN EXAM: Soft; No: Tenderness Skin Exam: Nl turgor and temperature Neuro Exam: Normal Speech Psych Exam: Mental status NL, Mood NL Other physical findings catheter draining clear yellow urine Vital Signs/I&O Vital Signs Date Time Temp Pulse Resp B/P (MAP) Pulse Ox O2 Delivery O2 Flow Rate FiO2 05/30/20 06:00 99.2 80 19 119/73 (88) 96 Room Air 05/28/20 06:00 2.0 I&O- Last 24 Hours up to 6 AM 05/30/20 05:59 Intake Total 2825 ml Output Total 3075 ml Balance -250 ml Laboratory Data Labs 24H Laboratory Tests 2 05/30/20 05:22: Immature Granulocyte % (Auto) 0.7, Neutrophils (%) (Auto) 79.4H, Lymphocytes (%) (Auto) 8.1L, Monocytes (%) (Auto) 7.1, Eosinophils (%) (Auto) 4.2H, Basophils (%) (Auto) 0.5, Neutrophils # (Auto) 6.9, Lymphocytes # (Auto) 0.7L, Monocytes # (Auto) 0.6, Eosinophils # (Auto) 0.4, Basophils # (Auto) 0.0, Nucleated Red Blood Cells % (auto) 0.0, Anion Gap 9, Glomerular Filtration Rate 30.4L, Calcium Level 7.0L, Magnesium Level 2.1, Total Bilirubin 0.3, Aspartate Amino Transf (AST/SGOT) 49H, Alanine Aminotransferase (ALT/SGPT) 28, Alkaline Phosphatase 81, Troponin I 0.63#H, Total Protein 5.0L, Albumin 2.0L, Albumin/Globulin Ratio 0.7 CBC/BMP Laboratory Tests 05/30/20 05:22 Microbiology Microbiology 05/29/20 Blood Culture, Received Pending 05/29/20 Blood Culture, Received Pending 05/27/20 Urine Culture - Final, Complete Enterococcus Faecalis 05/27/20 Blood Culture - Preliminary, Resulted No Growth after 48 hours. All Specime... 05/27/20 Blood Culture - Preliminary, Resulted Assessment/Plan Date Seen The patient was seen on 05/30/20. Patient Summary This is a 69 y/o M w/ bladder cancer s/p TURBT, R ureteroscopy and R ureteral stent placement on 05/18/20, admitted to the hospital a few days ago for sepsis due to a UTI and urinary retention. He is doing better on IV abx. His urine culture grew E faecalis and blood culture is showing GPR on gram strain. WBC coming down and patient afebrile on ceftriaxone. Plan/VTE VTE Prophylaxis Ordered?: No VTE Exclusion Mechanical Proph: Low Risk for VTE Plan - keep catheter to gravity drainage - adjust abx based on cultures as needed - consider levaquin on discharge since E faecalis is growing - plan for f/u in my office on Saturday for stent and catheter removal (if patient is discharged by then - otherwise will reschedule for next wk) DAVID JOYA MD May 30, 2020 13:15
--- NOTE | 2020-05-30 13:32 | ECHO ---
DATE OF PROCEDURE: 05/28/2020 Age: 69 Gender: Male Height: 180 cm Weight: 82 kg REFERRING PHYSICIAN: Mauricio Adam DO INDICATION: Abnormal EKG. MEASUREMENTS: IVS 1.4 cm LV 5.8 cm LVPW 1.4 cm LA 4.7 cm Aorta 4.1 cm RV from apical four chamber view 6.5 cm IVC 1.7 cm Mitral E wave velocity 86 Mitral A wave 63 E prime septal 6.7 E prime lateral 12.0 FINDINGS: This study is of good technical quality. The patient is in sinus rhythm with wide QRS complex. Left ventricle is mildly dilated. There is [id number] left ventricular hypertrophy that is global in nature. Overall preserved LV systolic function with estimated LVEF approximately 55% to 60%. I do not appreciate any segmental wall motion abnormalities. Right ventricle is dilated, but appears to have preserved contractility. There is severe biatrial enlargement. The aortic valve is bioprosthetic. It appears normal based on 2D imaging. Mitral valve exhibits degenerative abnormalities with thickening of mitral leaflet and prolapse of posterior mitral leaflet that appears mild based on 2D imaging. Tricuspid and pulmonic valves appear normal. No pericardial effusion is noted. Inferior vena cava is normal size and appropriately collapses with inspiration indicative of normal central venous pressure. The aortic root and aortic arch appear normal. Abdominal aorta was not well seen. Doppler interrogation of the aortic valve reveals no insufficiency and no significant stenosis, mean gradient across the valve was 14 mmHg. There is approximately moderate eccentric mitral insufficiency oriented towards the interatrial septum. No stenosis of the valve. There is approximately moderate tricuspid insufficiency with central TR jet and calculated pulmonary artery pressure in the high 40s corresponding to moderate pulmonary hypertension. Mild pulmonic insufficiency is also seen. Mitral inflow pattern and tissue Doppler imaging of the mitral annulus revealed grade 2 diastolic dysfunction. CONCLUSIONS: 1. Study is of good technical quality, underlying sinus rhythm with wide QRS complex. 2. Mildly dilated left ventricle with [id number] left ventricular hypertrophy and overall preserved LV systolic function. Estimated LVEF 55% to 60%. Grade 2 diastolic dysfunction. 3. Dilated, but normally contractile right ventricle. 4. Severe biatrial enlargement. 5. Normally functioning bioprosthesis in the aortic position. 6. Moderate mitral insufficiency likely secondary to posterior mitral leaflet prolapse. 7. Moderate tricuspid insufficiency. 8. Normal central venous pressure, but at least moderate pulmonary hypertension. COMMENTS: SBE prophylaxis is recommended. MTDD
[2020-05-30 14:00] VITALS: BP 119/74
--- NOTE | 2020-05-30 14:35 | IPNPDOC ---
Text Note Date of Service The patient was seen on 05/30/20. NOTE Subjective: Patient resting comfortably on the bed. No fever overnight. Patient denied chest pain, palpitations. Objective: GENERAL APPEARANCE: NAD HEENT: no scleral icterus, no JVD, EOMI CARDIOVASCULAR: S1S2 LUNGS: Diminished lung sounds bilaterally ABDOMEN: soft & not tender w palpitation, no flank tenderness, mild suprapubic tenderness MUSCULOSKELETAL: no cyanosis, no swelling INTEGUMENT: no generalized pallor NEUROLOGICAL: cranial nerve function from 2-12 intact intact, follows commands, speech not dysarthric Assessment/Plan Patient is 69 years old male with past history of hyperlipidemia, aortic valve replacement, hypertension, bladder cancer status post TUR was transferred from [facility] with fever and chills. Patient stated that 3 days ago he had bladder tumor resection, which was done by Dr. Grullon. On the next day, patient developed generalized weakness with frequency in urination. He stated that he became unsteady in his walking Patient stated that frequency of urination was associated with suprapubic pain. Yesterday, patient developed fever and rigors, he noticed his urine became dark. He was able to urinate multiple times with small portion. Today patient came to [facility] where he was found to have low blood pressure, white blood count of 24.4 with band 18 , hemoglobin 4.6, creatinine 3.8. CT abdomen and pelvis was done, no report is available. EKG showed sinus tachycardia, with left bundle branch block. Patient denied any chest pain, palpitations. Also patient denied nausea, vomiting or diarrhea Problems (1) Sepsis resolved Secondary to surgical intervention, status post TURB due to tumor Patient developed leukocytosis, fever and tachycardia associated with low blood pressure of 90/60 Procalcitonin 63.98 on the admission Our radiology team reviewed CT abdomen and pelvis from [facility]: No renal or ureteral calculi. Right ureteral stent with extensive perinephric and periureteral stranding on the right with actual fluid in the right perinephric space. kidney ultrasound on 05/29/20 negative for right kidney abscess Leukocytosis improved on 05/29/20 down from 17.7 to 9.8 One set of blood culture positive for gram-positive rods. There is concern for contamination. Repeated Blood culture negative urine culture showed enterococcus faecalis. We will change antibiotic to ampicillin as a drug of choice for Enterococcus faecalis Acute pyelonephritis Patient received treatment with with ceftriaxone IV and IV fluid with positive dynamics Holliday in place No fever, leukocytosis resolved Hyperlipidemia Continue statin Hypertension Blood pressures under control Abnormal EKG Patient has sinus tachycardia with left bundle branch block. No previous EKG to compare. Patient has multiple risk factors: Age, hyperlipidemia, hypertension, smoking history Patient denied any chest pain or palpitations during this hospital stay On 05/29/20 troponin elevated to 1.07. EKG showed sinus bradycardia with incomplete left bundle branch block Echo showed: Mildly dilated left ventricle with [id number] left manisha tricular hypertrophy and overall preserved LV systolic function. Estimated LVEF 55% to 60%. Grade 2 diastolic dysfunction. 3. Dilated, but normally contractile right ventricle. 4. Severe biatrial enlargement. Left ventricle was mildly dilated and the function of the aortic bioprosthesis was normal. Dr Thacker rec stress test in the outpatient settings. Continue Telemetry VENUS (acute kidney injury) Postrenal secondary to urinary obstruction due to recent TURB Creatinine significantly elevated to 3.8 on admission. Slowly improved Continue to monitor Elevated troponin/non-STEMI Dr. Thacker thinks that the patient developed most likely type 2 myocardial infarction in the setting of urosepsis Continue aspirin, statin. Patient is on the high risk for bleeding due to recent TURB. Anticoagulation was not initiated. Stephan inhibitors on hold due to VENUS Patient denies any chest pain Troponin trended Diarrhea Resolved C. difficile negative VS,Fishbone, I+O VS, Fishbone, I+O Laboratory Tests 05/30/20 05:22 Vital Signs Date Time Temp Pulse Resp B/P (MAP) Pulse Ox O2 Delivery O2 Flow Rate FiO2 05/30/20 06:00 99.2 80 19 119/73 (88) 96 Room Air 05/28/20 06:00 2.0 I&O- Last 24 Hours up to 6 AM 05/30/20 06:00 Intake Total 2685 ml Output Total 3100 ml Balance -415 ml TONIA TRINIDAD DO May 30, 2020 14:35
[2020-05-30 22:00] VITALS: BP 154/76
[2020-05-30] MEDS: ATORVASTATIN 20 MG TAB PO SCH (22:08)
[2020-05-31] MEDS: NS 1,000 ML IV SCH ×2 (02:39→09:20)
[2020-05-31 06:00] VITALS: BP 153/83
[2020-05-31 06:52] LABS: BASO % 0.4 % (0.0-1.0); EOS # 0.7 10^3/uL (0.0-0.5); EOS % 8.9 % (0.0-3.0); HEMATOCRIT 32.4 % (42.0-52.0); HEMOGLOBIN 10.6 g/dl (13.5-17.5); LYMPH # 0.8 10^3/uL (1.5-5.0); LYMPH % 10.2 % (24.0-44.0); MEAN CORPUSCULAR HEMOGLOBIN 29.7 pg (27.0-33.0); MEAN CORPUSCULAR HGB CONC 32.7 g/dl (32.0-36.5); MEAN CORPUSCULAR VOLUME 90.8 fl (80.0-96.0); MONO # 0.7 10^3/uL (0.0-0.8); MONO % 8.7 % (2.0-8.0); NEUTROPHILS # 5.4 10^3/uL (1.5-8.5); NEUTROPHILS % 70.9 % (36.0-66.0); PLATELET COUNT, AUTOMATED 155 10^3/uL (150-450); RED BLOOD COUNT 3.57 10^6/uL (4.30-6.10); WHITE BLOOD COUNT 7.6 10^3/uL (4.0-10.0)
[2020-05-31 07:18] LABS: ALBUMIN 2.2 GM/DL (3.2-5.2); BILIRUBIN,TOTAL 0.5 MG/DL (0.2-1.0); CREATININE FOR GFR 1.98 MG/DL (0.70-1.30); GLOMERULAR FILTRATION RATE 35.8 (>42); MAGNESIUM LEVEL 1.8 MG/DL (1.8-2.4); POTASSIUM SERUM 3.7 MEQ/L (3.5-5.1); TOTAL PROTEIN 5.3 GM/DL (6.4-8.2)
[2020-05-31] MEDS: ASPIRIN 81MG ENTERIC TABLET PO SCH (09:20)
[2020-05-31] MEDS: cefTRIAXone SOD 2 GM in D5W MINI-BAG PLUS 50 ML IV SCH (09:20)
[2020-05-31] MEDS: FINASTERIDE 5 MG TAB PO SCH (09:20)
[2020-05-31] MEDS: TAMSULOSIN 0.4 MG CAP PO SCH (09:20)
[2020-05-31] MEDS: ENOXAPARIN 40MG/0.4ML SYRINGE (J1650 PER 10MG) SC SCH (09:20)
[2020-05-31] MEDS ORDERED: AMPI500C9 PO (09:45)
--- NOTE | 2020-05-31 15:00 | DS.PDOC ---
Discharge Summary General Date of Admission May 27, 2020 at 16:30 Date of Discharge 05/31/20 Discharge Summary PROCEDURES PERFORMED DURING STAY: [None]. ADMITTING DIAGNOSES: Sepsis Acute pyelonephritis Hyperlipidemia Hypertension Abnormal EKG VENUS (acute kidney injury) Elevated troponin/non-STEMI Diarrhea DISCHARGE DIAGNOSES: Sepsis Acute pyelonephritis Hyperlipidemia Hypertension Abnormal EKG VENUS (acute kidney injury) Elevated troponin/non-STEMI Diarrhea Diastolic CHF COMPLICATIONS/CHIEF COMPLAINT: Sepsis Uti. HISTORY OF PRESENT ILLNESS: Patient is 69 years old male with past history of hyperlipidemia, aortic valve replacement, hypertension, bladder cancer status post TUR was transferred from [facility] with fever and chills. Patient stated that 3 days ago he had bladder tumor resection, which was done by Dr. Grullon. On the next day, patient developed generalized weakness with frequency in urination. He stated that he became unsteady in his walking Patient stated that frequency of urination was associated with suprapubic pain. Yesterday, patient developed fever and rigors, he noticed his urine became dark. He was able to urinate multiple times with small portion. Today patient came to [facility] where he was found to have low blood pressure, white blood count of 24.4 with band 18 , hemoglobin 4.6, creatinine 3.8. CT abdomen and pelvis was done, no report is available. EKG showed sinus tachycardia, with left bundle branch block. Patient denied any chest pain, palpitations. Also patient denied nausea, vomiting or diarrhea HOSPITAL COURSE: During the hospital Sepsis resolved Secondary to surgical intervention, status post TURB due to tumor Patient developed leukocytosis, fever and tachycardia associated with low blood pressure of 90/60 Procalcitonin 63.98 on the admission Our radiology team reviewed CT abdomen and pelvis from [facility]: No renal or ureteral calculi. Right ureteral stent with extensive perinephric and periureteral stranding on the right with actual fluid in the right perinephric space. kidney ultrasound on 05/29/20 negative for right kidney abscess Leukocytosis improved on 05/29/20 down from 17.7 to 9.8 One set of blood culture positive for Enterococcus faecalis. urine culture showed enterococcus faecalis. We will change antibiotic to ampicillin as a drug of choice for Enterococcus faecalis Acute pyelonephritis Patient received treatment with with ceftriaxone IV and IV fluid with positive dynamics Holliday in place No fever, leukocytosis resolved Hyperlipidemia Continue statin Hypertension Blood pressures under control Abnormal EKG Patient has sinus tachycardia with left bundle branch block. No previous EKG to compare. Patient has multiple risk factors: Age, hyperlipidemia, hypertension, smoking history Patient denied any chest pain or palpitations during this hospital stay On 05/29/20 troponin elevated to 1.07. EKG showed sinus bradycardia with incomplete left bundle branch block Echo showed: Mildly dilated left ventricle with [id number] left ventricular hypertrophy and overall preserved LV systolic function. Estimated L VEF 55% to 60%. Grade 2 diastolic dysfunction. 3. Dilated, but normally contractile right ventricle. 4. Severe biatrial enlargement. Left ventricle was mildly dilated and the function of the aortic bioprosthesis was normal. Dr Thacker rec stress test in the outpatient settings. VENUS (acute kidney injury) Postrenal secondary to urinary obstruction due to recent TURB Creatinine significantly elevated to 3.8 on admission. Slowly improved Continue to monitor Elevated troponin/non-STEMI/diastolic CHF Dr. Thacker thinks that the patient developed most likely type 2 myocardial infarction in the setting of urosepsis Continue aspirin, statin. Patient is on the high risk for bleeding due to recent TURB. Anticoagulation was not initiated. Stephan inhibitors on hold due to VENUS Patient denies any chest pain Troponin trended down Diarrhea Resolved C. difficile negative DISCHARGE MEDICATIONS: Please see below. ALLERGIES: Please see below. PHYSICAL EXAMINATION ON DISCHARGE: VITAL SIGNS: Please see below. GENERAL APPEARANCE: NAD HEENT: no scleral icterus, no JVD, EOMI CARDIOVASCULAR: S1S2 LUNGS: Diminished lung sounds bilaterally ABDOMEN: soft & not tender w palpitation, no flank tendernes MUSCULOSKELETAL: no cyanosis, no swelling INTEGUMENT: no generalized pallor NEUROLOGICAL: cranial nerve function from 2-12 intact intact, follows commands, speech not dysarthric LABORATORY DATA: Please see below. IMAGING: See above PROGNOSIS: Fair ACTIVITY: [As tolerated]. DIET: Cardiac DISPOSITION: 01 Home, Self-Care. ITEMS TO FOLLOWUP ON ON OUTPATIENT: Follow-up with urologist tomorrow, follow-up with architectural design lecturer in the outpatient settings in 1 week for stress test and possible cardiac catheterization DISCHARGE CONDITION: [Stable]. TIME SPENT ON DISCHARGE: 30minutes. Vital Signs/I&Os Vital Signs Date Time Temp Pulse Resp B/P (MAP) Pulse Ox O2 Delivery O2 Flow Rate FiO2 05/31/20 06:00 97.4 60 18 153/83 (106) 97 Room Air 3/13/21 06:00 2.0 I&O- Last 24 Hours up to 6 AM 05/31/20 06:00 Intake Total 1740 ml Output Total 4825 ml Balance -3085 ml Laboratory Data Labs 24H Laboratory Tests 2 05/31/20 06:23: Immature Granulocyte % (Auto) 0.9, Neutrophils (%) (Auto) 70.9H, Lymphocytes (%) (Auto) 10.2L, Monocytes (%) (Auto) 8.7H, Eosinophils (%) (Auto) 8.9H, Basophils (%) (Auto) 0.4, Neutrophils # (Auto) 5.4, Lymphocytes # (Auto) 0.8L, Monocytes # (Auto) 0.7, Eosinophils # (Auto) 0.7H, Basophils # (Auto) 0.0, Nucleated Red Blood Cells % (auto) 0.0, Anion Gap 7L, Glomerular Filtration Rate 35.8L, Calcium Level 8.0L, Magnesium Level 1.8, Total Bilirubin 0.5#, Aspartate Amino Transf (AST/SGOT) 102H, Alanine Aminotransferase (ALT/SGPT) 65, Alkaline Phosphatase 88, Total Protein 5.3L, Albumin 2.2L, Albumin/Globulin Ratio 0.7 CBC/BMP Laboratory Tests 05/31/20 06:23 Microbiology Microbiology 05/29/20 Blood Culture - Preliminary, Resulted No Growth after 48 hours. All Specime... 05/29/20 Blood Culture - Preliminary, Resulted No Growth after 48 hours. All Specime... 05/27/20 Urine Culture - Final, Complete Enterococcus Faecalis 05/27/20 Blood Culture - Preliminary, Resulted No Growth after 72 hours. All specime... 05/27/20 Blood Culture - Final, Complete Enterococcus Faecalis Discharge Medications Scheduled Ampicillin Trihydrate (Ampicillin Trihydrate) 500 Mg Capsule, 500 MG PO QID Aspirin (Ecotrin) 81 Mg Tablet.dr, 81 MG PO DAILY, (Reported) Atorvastatin Calcium (Atorvastatin Calcium) 20 Mg Tablet, 20 MG PO QHS, (Reported) Finasteride (Proscar) 5 Mg Tablet, 5 MG PO DAILY, (Reported) Lisinopril (Lisinopril) 20 Mg Tablet, 20 MG PO DAILY, (Reported) Tamsulosin HCl (Flomax) 0.4 Mg Capsule, 0.4 MG PO DAILY, (Reported) Allergies Coded Allergies: No Known Allergies (Unverified , 05/18/20) TONIA TRINIDAD DO May 31, 2020 15:00
== END 2020-05-31 12:22 | disposition home or self-care (01) | DRG 862 ==
LOC: M MSPAV 16:30
PROVIDERS: ADMIT Internal Medicine Nephrology; ATTEND Internal Medicine
DX: T81.44XA Sepsis following a procedure, initial encounter (principal); A41.9 Sepsis, unspecified organism; I21.4 Non-ST elevation (NSTEMI) myocardial infarction; I24.8 Other forms of acute ischemic heart disease; N39.0 Urinary tract infection, site not specified; N17.9 Acute kidney failure, unspecified; I50.32 Chronic diastolic (congestive) heart failure; N10 Acute pyelonephritis; I11.0 Hypertensive heart disease with heart failure; E78.5 Hyperlipidemia, unspecified; R19.7 Diarrhea, unspecified; Z95.2 Presence of prosthetic heart valve; Z85.51 Personal history of malignant neoplasm of bladder; Z79.82 Long term (current) use of aspirin; Z79.899 Other long term (current) drug therapy; Z87.891 Personal history of nicotine dependence; I27.20 Pulmonary hypertension, unspecified; I34.0 Nonrheumatic mitral (valve) insufficiency